=== PATIENT | male | born 1960 | race Caucasian/White ===

== ENCOUNTER 2018-01-17 08:11 | Emergency (ER) | payer OTHER ==
[~2018-01-17] VITALS: Ht 165.1 cm; Wt 68.0 kg
[~2018-01-17 08:11] MED LIST: Bactrim Ds Tab1 EACH PO; HYDR1TAB94 PO; Naprosyn500 MG PO; Silvadene20 GM TOP; Veetids 500500 MG PO
[2018-01-17] MEDS ORDERED: Bactrim Ds Tab1 EACH PO (08:34)
== END 2018-01-17 08:46 | disposition home or self-care (01) ==
LOC: ER 08:11
DX: L02.511 Cutaneous abscess of right hand (principal); L02.11 Cutaneous abscess of neck; L03.113 Cellulitis of right upper limb; L03.221 Cellulitis of neck; B95.62 Methicillin resistant Staphylococcus aureus infection as the cause of diseases classified elsewhere; F17.210 Nicotine dependence, cigarettes, uncomplicated
CPT/HCPCS: 99282

== ENCOUNTER 2018-07-29 17:20 | Emergency (ER) | payer OTHER ==
[~2018-07-29] VITALS: Ht 167.6 cm; Wt 68.0 kg
[~2018-07-29 17:20] MED LIST changes: +QUET100 PO
[2018-07-29 18:01] LABS: Source, Urine Clean Catch
[2018-07-29 18:07] LABS: Bilirubin, Urine Neg (Neg); Blood, Urine Neg (Neg); Glucose Qualitative, Urine Neg (Neg); Ketones, Urine Neg (Neg); Leukocyte Esterase, Urine Neg (Neg); Nitrite, Urine Neg (Neg); Protein, Urine Neg (Neg); Urobilinogen, Urine NORM (Normal)
[2018-07-29 18:09] LABS: BASOPHILS ABSOLUTE AUTO 0.05 K/mm3 (0.00-0.23); BASOPHILS PERCENT AUTO 0 % (0-2); EOSINOPHILS ABSOLUTE AUTO 0.04 K/mm3 (0.00-0.68); EOSINOPHILS PERCENT AUTO 0 % (0-6); Hematocrit 39.6 % (37.0-53.0); Hemoglobin 13.3 g/dL (13.5-17.5); IMMATURE GRAN ABSOLUTE AUTO 0.04 K/mm3 (0.00-0.10); IMMATURE GRAN PERCENT AUTO 0 % (0-1); LYMPHOCYTES ABSOLUTE AUTO 0.51 K/mm3 (0.84-5.20); LYMPHOCYTES PERCENT AUTO 4 % (21-46); MONOCYTES ABSOLUTE AUTO 0.67 K/mm3 (0.16-1.47); MONOCYTES PERCENT AUTO 6 % (4-13); Mean Corpuscular HGB 34.6 pg (26.0-34.0); Mean Corpuscular HGB Conc 33.6 g/dL (31.5-36.5); Mean Corpuscular Volume 103 fL (80-100); Mean Platelet Volume 9.2 fL (9.1-12.4); NEUTROPHILS ABSOLUTE AUTO 10.22 K/mm3 (1.96-9.15); NEUTROPHILS PERCENT AUTO 89 % (41-73); Platelet Count 265 K/mm3 (150-400); RDW Coefficient Variation 12.8 % (11.7-14.2); RDW Standard Deviation 48.7 fL (35.1-46.3); Red Blood Cell Count 3.84 M/mm3 (4.30-5.90); White Blood Cell Count 11.53 K/mm3 (4.00-11.30)
[2018-07-29 18:29] LABS: Alanine Aminotransfer (ALT/SGP 143 U/L (12-78); Albumin, Blood 3.6 g/dL (3.4-5.0); Albumin/Globulin Ratio 0.8 (0.8-1.8); Alk Phos 111 U/L (50-136); Anion Gap 10 mmol/L (6-16); Aspartate Aminotrans (AST/SGOT 149 U/L (12-37); Bilirubin, Total 0.5 mg/dL (0.1-1.0); Blood Urea Nitrogen 7 mg/dL (8-24); Bun/Creatinine Ratio 9.6 (12.0-20.0); CO2, Blood 25 mmol/L (21-32); Calcium, Blood 8.2 mg/dL (8.5-10.1); Chloride, Blood 98 mmol/L (98-108); Creatinine, Blood 0.73 mg/dL (0.60-1.20); Globulin, Blood 4.8 g/dL (2.2-4.0); Glomerular Filtration Rate >60 (60-); Glucose, Blood 90 mg/dL (70-99); Potassium, Blood 3.9 mmol/L (3.5-5.5); Sodium, Blood 133 mmol/L (136-145); Total Protein, Blood 8.4 g/dL (6.4-8.2)
[2018-07-29 18:40] LABS: Appearance, Urine Clear (Clear); Color, Urine Yellow (P-Yellow)
[2018-07-29 19:03] LABS: Influenza A Negative (NEGATIVE); Influenza B Negative (NEGATIVE)
[2018-07-29] MEDS ORDERED: NAPR550 PO (19:32)
== END 2018-07-29 19:55 | disposition home or self-care (01) ==
LOC: ER 17:20
PROVIDERS: Emergency Medicine
DX: S22.42XA Multiple fractures of ribs, left side, initial encounter for closed fracture (principal); R50.9 Fever, unspecified; W18.30XA Fall on same level, unspecified, initial encounter; F17.210 Nicotine dependence, cigarettes, uncomplicated; Z59.0 Homelessness
CPT/HCPCS: 36415; 71046; 80053; 81003; 83605; 85025; 87804; 99284-25; G0480

== ENCOUNTER 2018-07-30 05:36 | Inpatient (IN) | payer OTHER ==
[~2018-07-30] VITALS: Ht 165.1 cm; Wt 62.4 kg
[~2018-07-30 05:36] MED LIST changes: +NAPR550 PO
[2018-07-30 07:16] LABS: Hematocrit 38.7 % (37.0-53.0); Hemoglobin 12.6 g/dL (13.5-17.5); Mean Corpuscular HGB Conc 32.6 g/dL (31.5-36.5); Mean Corpuscular Volume 104 fL (80-100); Mean Platelet Volume 9.5 fL (9.1-12.4); Platelet Count 204 K/mm3 (150-400); RDW Standard Deviation 49.1 fL (35.1-46.3); Red Blood Cell Count 3.71 M/mm3 (4.30-5.90)
[2018-07-30 07:32] LABS: Albumin/Globulin Ratio 0.7 (0.8-1.8); Bilirubin, Total 1.1 mg/dL (0.1-1.0); Bun/Creatinine Ratio 13.6 (12.0-20.0); Calcium, Blood 8.2 mg/dL (8.5-10.1); Creatinine, Blood 1.62 mg/dL (0.60-1.20); Globulin, Blood 4.2 g/dL (2.2-4.0); Potassium, Blood 3.4 mmol/L (3.5-5.5); Total Protein, Blood 7.2 g/dL (6.4-8.2)
[2018-07-30 07:38] LABS: BAND PERCENT MAN 24 % (0-8); BASOPHILS PERCENT MAN 0 % (0-2); EOSINOPHILS PERCENT MAN 0 % (0-6); LYMPHOCYTES ABSOLUTE MAN 0.38 K/mm3 (0.84-5.20); LYMPHOCYTES PERCENT MAN 3 % (21-46); METAMYELOCYTE ABSOLUTE MAN 0.12 K/mm3 (0.00-0.00); METAMYELOCYTE PERCENT MAN 1 % (0-0); MONOCYTES ABSOLUTE MAN 0.64 K/mm3 (0.16-1.47); MONOCYTES PERCENT MAN 5 % (4-13); NEUTROPHILS ABSOLUTE MAN 11.73 K/mm3 (1.96-9.15); SEG NEUTROPHILS PERCENT MAN 67 % (41-73); TOTAL CELLS COUNTED 100
[2018-07-30 09:28] LABS: International Normalized Ratio 1.18; Prothrombin Time Results 12.3 Sec (9.7-11.5)
--- NOTE | 2018-07-30 10:57 | NUR ---
ASSUMED CARE: PT AWAKE, ALERT AND ORIENTED, FREQUENT PROUCTIVE COUGH WITH ORANGE/YELLOW SPUTUM. HYPOTENSION NOTED. DR PATE AWARE AND ORDERED AN NS BOLUS. ANTICIPATING PRESSORS, PICC RN AWARE AND PREPARINT TO INSERT LINE. O2 SAT 93% ON 4L AT THIS TIME. RESTING IN BED WATCHING TV
--- NOTE | 2018-07-30 11:44 | NUR ---
PT STATES HE HAS BIRD MITES WHEN ASKED ABOUT SCAB ON RIGHT FOREHEAD. DISCUSSED WITH HARSHA FROM INFECTION CONTROL. AWAITING CALL BACK FOR INSTRUCTIONS
--- NOTE | 2018-07-30 13:50 | NUR ---
PT GIVEN BATH AND APPLIED MEDICATION TO FULL BODY FOR BIRD MITES. ISOLATION PRECAUTIONS IN PLACE PER RECOMMENDATION OF INFECTION CONTROL.
[2018-07-30 15:27] LABS: U Amphetamine Screen Not Detected; U Barbituate Screen Not Detected; U Benzodiazapine Screen DETECTED; U Buprenorphine Screen Not Detected; U Cannabinoids Screen Not Detected; U Cocaine Screen Not Detected; U Methadone Screen Not Detected; U Methamphetamine Screen Not Detected; U Opiates Screen DETECTED; U Oxycodone Screen Not Detected; U Phencyclidine Screen Not Detected; U Propoxyphene Screen Not Detected
--- NOTE | 2018-07-30 16:00 | NUR ---
PT'S BELONGINGS SORTED AND PUT IN BLUE LINEN BAGS TO KEEP IN AIRTIGHT CONTAINER. PATIENT'S BELONGINGS WRITTEN ACROSS BAGS
--- NOTE | 2018-07-30 18:05 | NUR ---
SHIFT SUMMARY: PT MEDICATED WITH ATIVAN FOR SEVERE TREMORS AND CIWA OF 16. RESTING QUIETLY. PICC LINE PLACED, HYPOTENSIVE BUT NOT REQUIRING PRESSORS AT THIS TIME. BELONGINGS BAGGED AND ROOM IN ISOLATION DUE TO BIRD MITES. PT HAS BEEN TREATED WITH MEDICATED LOTION. NO FURTHER NEEDS OR CONCERNS AT THIS TIME.
--- NOTE | 2018-07-30 21:52 | NUR ---
ASSUMING CARE RECEIVED PT REPORT FROM ONELIA FLORES. PT IS ADMITTED DUE TO SEPSIS. PT IS ALERT AND ORIENTED AT THE TIME OF SHIFT REPORT. AT THE TIME CARE WAS ASSUMED PT IS RECEIVING NS AT 75ML/HR AND A BANANA BAG AT 75ML/HR. SHORTLY AFTER SHIFT REPORT PT BANANA BAG INFUSION COMPLETED AND WAS DISCONNECTED. PT CONTIUES TO RECEIVE NS AT 75 AT THIS TIME. PT IS TREMULOUS AT THE TIME OF SHIFT REPORT. TREMORS APPEAR TO RESPOND TO LIBRIUM AND ATIVAN. PT IS ON 3L O2 VIA NC PT SPO2 IS MAINTAINING IN THE 90'S AT THIS TIME. PT LUNGS ARE COARSE THROUGHOUT. PT IS BORDERLINE HYPOTENSIVE AT TIMES WITH A SYSTOLIC IN THE MID 80'S OBSERVED. PT MAP IS MAINTAINING IN THE 70'S. DR MACIAS PRESENT IN UNIT AND INFORMED OF PTS HYPOTENSION AND POSITIVE BLOOD CULTURES. INSTRUCTIONS RECEIVED TO CONTIUE TO MONITOR AND TO CALL IF PT MAP DECLINES. PT HAS BELONGINGS IN ROOM. BELONGINGS PLACED IN BLUE BAGS AND SEALED PER DAY SHIFT REPORT. THIS RN HAS NOT GONE THROUGH PT BELONGINGS AT THIS TIME. ASSUMING CARE OF PT AT THE TIME OF SHIFT REPORT. WILL CONTIUE TO MONITOR PT
[2018-07-31 03:58] LABS: Hematocrit 32.2 % (37.0-53.0); Hemoglobin 10.4 g/dL (13.5-17.5); Mean Corpuscular HGB 34.8 pg (26.0-34.0); Mean Corpuscular HGB Conc 32.3 g/dL (31.5-36.5); Platelet Count 159 K/mm3 (150-400); RDW Coefficient Variation 13.1 % (11.7-14.2); RDW Standard Deviation 51.9 fL (35.1-46.3); Red Blood Cell Count 2.99 M/mm3 (4.30-5.90); White Blood Cell Count 22.48 K/mm3 (4.00-11.30)
[2018-07-31 04:00] LABS: Mean Corpuscular Volume 108 fL (80-100)
[2018-07-31 04:15] LABS: Anion Gap 8 mmol/L (6-16); Blood Urea Nitrogen 17 mg/dL (8-24); Bun/Creatinine Ratio 17.5 (12.0-20.0); CO2, Blood 25 mmol/L (21-32); Calcium, Blood 7.8 mg/dL (8.5-10.1); Chloride, Blood 107 mmol/L (98-108); Creatinine, Blood 0.97 mg/dL (0.60-1.20); Glomerular Filtration Rate >60 (60-); Glucose, Blood 185 mg/dL (70-99); Potassium, Blood 3.7 mmol/L (3.5-5.5); Sodium, Blood 140 mmol/L (136-145)
[2018-07-31 04:37] LABS: BAND PERCENT MAN 38 % (0-8); BASOPHILS PERCENT MAN 0 % (0-2); EOSINOPHILS PERCENT MAN 0 % (0-6); LYMPHOCYTES ABSOLUTE MAN 0.89 K/mm3 (0.84-5.20); LYMPHOCYTES PERCENT MAN 4 % (21-46); METAMYELOCYTE ABSOLUTE MAN 1.12 K/mm3 (0.00-0.00); METAMYELOCYTE PERCENT MAN 5 % (0-0); MONOCYTES ABSOLUTE MAN 0.22 K/mm3 (0.16-1.47); MONOCYTES PERCENT MAN 1 % (4-13); MYELOCYTE ABSOLUTE MAN 0.22 K/mm3 (0.00-0.00); MYELOCYTE PERCENT MAN 1 % (0-0); SEG NEUTROPHILS PERCENT MAN 51 % (41-73); TOTAL CELLS COUNTED 100
--- NOTE | 2018-07-31 07:22 | NUR ---
SHIFT SUMMARY NOTE PT HAS SLEPT THROUGH MOST OF THE NIGHT. PT IS ABLE TO ANSWER ORIENTATION QUESTIONS APPROPRIATELY WHILE AWAKE. PT HAS REPORTED RIB PAIN THROUGHOUT THE NIGHT. PT HAS BEEN PROVIDED NORCO X2 TIMES OVERNIGHT. PT HAS BEEN TREMULOUS AND HAS REPORTED FEELINGS OF INCREASING WITHDRAWALS AT TIMES. PT REQUESTED LIBRIUM ON MULTIPLE OCCASIONS, LIBRIUM PROVIDED PER REQUEST AND EMAR. PT WAS PROVIDED 1 NORCO OR LIBRIUM AT A TIME TO PREVENT A DROPPING OF BLOOD PRESSURE. PT HAS BEEN HYPOTENSIVE AT TIMES WITH A SYSTOLIC IN THE 80'S. PT HAS MAINTAINED MAP GREATER THAN 65 THROUGHOUT THE NIGHT. PT CONTINUES TO RECEIVE NS AT 75ML/HR. PT HAS REPOSITIONED SELF IN BED AND USED THE URINAL WITHOUT ASSISTANCE. WILL REPORT OFF TO ONCOMING DAY SHIFT NURSE.
--- NOTE | 2018-07-31 07:32 | NUR ---
ASSUMED CARE: REPORT RECEIVED FROM KEITH Walker RN. ASSUMED CARE OF THIS PT AT APPROX 0700. ON ASSESSMENT, THE PT IS SITTING UP IN BED, WATCHING TV. HE IS A&O, COOPERATIVE W/ CARE. HE STS HE HAS PAIN TO HIS RIBS, WHICH STARTED "A FEW DAYS AGO" AFTER A COUGHING EPISODE. HE ALSO HAS REQUESTS FOR BEER W/ MEAL TRAYS & STS HE HAD THEM DURING HIS LAST HOSPITAL ADMISSION. WILL DISCUSS W/ PROVIDER THIS MORNING DURING ROUNDS. WILL CONTINUE TO MONITOR & UPDATE NEEDED.
--- NOTE | 2018-07-31 08:00 | NUR ---
DR. SILVA: PROVIDER IN ROOM TO SEE PT, DISCUSSED POC. CHANGES HAVE BEEN ABX REGIMEN BASED ON BLOOD CX. PT NOW OKAY TO HAVE 2 BEERS W/ EACH MEAL. ORDERS PLACED. WILL CONTINUE TO MONITOR & UPDATE NEEDED.
--- NOTE | 2018-07-31 18:49 | NUR ---
SHIFT SUMMARY: NO ACUTE CHANGES THIS SHIFT. PT REMAINS A&O TO SELF, PLACE & FOLLOWING COMMANDS. CIWA CHARTED. THE PT IS EXPERIENCING SOME VISUAL HALLUCINATIONS & ASKS "WHICH OF MY FRIENDS WAS I TALKING W/ EARLIER?" WHEN NO VISITORS HAVE BEEN IN TODAY TO SEE THE PT. LS REMAIN COARSE T/O, PT ON RA W/ O2 SATS > 92%. COUGH IS NONPRODUCTIVE. MONITOR SHOWS NSR, HR 80s. HYPOTENSION IS IMPROVING. PT HAS CONTINUED C/O HEARTBURN, MEDS PER EMAR. HE STS HE "ALWAYS" HAS HEARTBURN & TAKES ALKASELTZER NORMALLY. HE HAS A DECREASED APPETITE, IS DRINKING BEERS W/ MEAL. VOIDS W/O DIFFICULTY. WILL CONTINUE TO MONITOR & REPORT OFF TO ONCOMING RN.
--- NOTE | 2018-07-31 22:12 | NUR ---
ASSUMING CARE OF PT PT IS ALERT AND ABLE TO ANSWER ORIENTATION QUESTIONS APPROPRIATELY AT THIS ITME. PT HAS A CIWA SCORE OF APPROX 11 AT THIS TIME, PT IS CURRENTLY RECEIVING 2 BEERS PER MEAL PER DR SILVA. AT THE TIME CARE ASSUMED PT HAS 2 UNOPENED CANS OF BEER AND AN OPENED CANE THAT IS APPROXIMATELY HALF FULL. PER REPORT PT HAS HAD A POOR APPETITE THROUGHOUT THE DAY. PT IS TREMULOUS AT TIMES. PT HAS REPORTED TO BE INTERMITTENTLY SEEING HIS FRIENDS IN THE ROOM WHO ARE NOT PRESENT. PT STATES THAT HE IS AWARE THAT THEY ARE NOT PRESENT AT THIS TIME. PT SI CURRENTLY RECEIVING NS AT 75ML/HR AND A BANANA BAG AT 75ML/HR. PT IS ON ROOM AIR AT THE TIME OF SHIFT REPORT WITH SPO2 IN THE 90'S. SHORTLY AFTER SHIFT REPORT PT BEGAN TO SLEEP, WHILE ASLEEP PT BEGAN TO DESATURATE TO THE HIGH 80'S AND 2L O2 VIA NC WAS APPLIED, PT SPO2 INCREASED TO THE 90'S AFTER APPLICATION OF NC. PT LUNG SOUNDS CONTINUE TO BE COARSE THROUGHOUT. PT CONTINUES TO REPORT SEVERE RIB PAIN. PT HAS LIDOCAINE PATCH IN PLACE AND IS REQUESTING NORCO. PT PROVIDED X1 NORCO PER EMAR. PT HR IS MAINTAINING IN THE 80'S AND APPEARS TO BE STABLE AT THIS TIME. PT HYPOTENSION APPEARS TO HAVE IMPROVED AND BP IS MAINTAINING IN THE 100'S AT THIS TIME. ASSUMED CARE OF PT AT THE TIME OF SHIFT REPORT. WILL CONTINUE TO MONITOR PT.
[2018-08-01 04:09] LABS: BASOPHILS ABSOLUTE AUTO 0.07 K/mm3 (0.00-0.23); BASOPHILS PERCENT AUTO 0 % (0-2); EOSINOPHILS PERCENT AUTO 1 % (0-6); Hematocrit 32.1 % (37.0-53.0); Hemoglobin 10.2 g/dL (13.5-17.5); IMMATURE GRAN PERCENT AUTO 0 % (0-1); LYMPHOCYTES ABSOLUTE AUTO 1.53 K/mm3 (0.84-5.20); LYMPHOCYTES PERCENT AUTO 8 % (21-46); MONOCYTES ABSOLUTE AUTO 0.51 K/mm3 (0.16-1.47); MONOCYTES PERCENT AUTO 3 % (4-13); Mean Corpuscular HGB 34.7 pg (26.0-34.0); Mean Corpuscular HGB Conc 31.8 g/dL (31.5-36.5); Mean Corpuscular Volume 109 fL (80-100); NEUTROPHILS PERCENT AUTO 88 % (41-73); Platelet Count 145 K/mm3 (150-400); RDW Coefficient Variation 12.8 % (11.7-14.2); RDW Standard Deviation 51.4 fL (35.1-46.3); Red Blood Cell Count 2.94 M/mm3 (4.30-5.90); White Blood Cell Count 20.42 K/mm3 (4.00-11.30)
[2018-08-01 04:10] LABS: EOSINOPHILS ABSOLUTE AUTO 0.23 K/mm3 (0.00-0.68); IMMATURE GRAN ABSOLUTE AUTO 0.06 K/mm3 (0.00-0.10); NEUTROPHILS ABSOLUTE AUTO 18.02 K/mm3 (1.96-9.15)
[2018-08-01 04:25] LABS: Anion Gap 5 mmol/L (6-16); Blood Urea Nitrogen 14 mg/dL (8-24); Bun/Creatinine Ratio 15.5 (12.0-20.0); CO2, Blood 27 mmol/L (21-32); Chloride, Blood 108 mmol/L (98-108); Glomerular Filtration Rate >60 (60-); Glucose, Blood 80 mg/dL (70-99); Potassium, Blood 4.2 mmol/L (3.5-5.5); Sodium, Blood 140 mmol/L (136-145)
--- NOTE | 2018-08-01 06:13 | NUR ---
SHIFT SUMMARY NOTE PT HAS SLEPT THROUGH MOST OF THE NIGHT. PT CONTINUIES TO REPORT RIB PAIN. PT WAS PROVIDED X2 NORCO OVERNIGHT. PT CONTINUES TO BE SOMEWHAT TREMULOUS AT TIMES WHILE AWAKE. PT CONTINUES TO HAVE BEER AT BEDSIDE. PT HAS NOT BEEN PROVIDED LIBRIUM THROUGH THE NIGHT DUE TO CONSUMPTION OF ALCOHOL BY PT THROUGH THE NIGHT. PT VITAL SIGNS HAVE REMAINED STABLE THROUGHOUT THE NIGHT. REFER TO VITAL SIGN FLOW SHEET FOR DETAILS. PT CONTINUES ON 2L O2 VIA NC. PT IS MAINTAINING SATURATIONS AT THIS TIME IN THE MID TO HIGH 90'S. PT CONTIUES TO RECEIVE NS AT 75ML/HR. PT IS NO LONGER RECEIVING BANANA BAG AT THIS TIME. WILL REPORT OFF TO ONCOMING DAY SHIFT NURSE.
--- NOTE | 2018-08-01 07:23 | NUR ---
Received report from Abbe ROUSSEAU. Patient awake and is able to communicate his needs. He is lying in bed supine and HOB at 20 degrees and is flipping through the channels to find something good to watch. He is on 2L O2 humidified O2 via NC and sast mid 90%'s. He has PICC line to MAYA and all lines have been flushed and recapped. He has NS at 75ml/hr infuinsg. He is moderatly tremulous and has Beer at bedside from previous meals he is slowly drinking. I just assisted him up to bedside cammode and he was able to transfer self over. He states 9/10 pain from ribs and also states he has a hard time breathing although sats are 96%. I will medicate with [place] per MAR. He denies any other system problems.
--- NOTE | 2018-08-01 09:31 | NUR ---
Patient has been up several times to bedside cammode and is SBA. He took am meds with beer at bedside. Dr Grey has been in room and is transferring him to medical and his CIWA has been 6-8. He will get up to shower prior to transferring to medical. VSS. He has been calm and cooperative
--- NOTE | 2018-08-01 10:36 | NUR ---
Gave report to room 313 RN. Patient was in shower and when done he applied creame that we used for his stated Bird Mites. Bannana Bag infusing and can be dc'd when done. Placed Lidocaine patch on right rib area and gave rest of am meds per AUG. He was transferred with his beer and O2 lines for sleeping and cell phone and ear buds.. I will bring his two other bags later. He was transferred via wheelchair.
--- NOTE | 2018-08-01 17:20 | NUR ---
PT IS AO AND COOPERATIVE OF CARE. PT RESTING IN BED AT THIS TIME. PT WILL GET UP WITHOUT ASKING TO USE RESTROOM. PT WATCHING TV AT THIS TIME. 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 ICU WAS CALLED AND HOUSE CLEANING, BUT HAS NOT BEEN LOCATED.WILL CONTINUE TO MONITOR.
[2018-08-02 05:33] LABS: BASOPHILS ABSOLUTE AUTO 0.05 K/mm3 (0.00-0.23); BASOPHILS PERCENT AUTO 0 % (0-2); EOSINOPHILS ABSOLUTE AUTO 0.01 K/mm3 (0.00-0.68); EOSINOPHILS PERCENT AUTO 0 % (0-6); Hematocrit 33.3 % (37.0-53.0); Hemoglobin 10.8 g/dL (13.5-17.5); IMMATURE GRAN ABSOLUTE AUTO 0.07 K/mm3 (0.00-0.10); IMMATURE GRAN PERCENT AUTO 1 % (0-1); LYMPHOCYTES ABSOLUTE AUTO 1.23 K/mm3 (0.84-5.20); LYMPHOCYTES PERCENT AUTO 8 % (21-46); MONOCYTES ABSOLUTE AUTO 0.63 K/mm3 (0.16-1.47); MONOCYTES PERCENT AUTO 4 % (4-13); Mean Corpuscular HGB 33.9 pg (26.0-34.0); Mean Corpuscular HGB Conc 32.4 g/dL (31.5-36.5); Mean Platelet Volume 10.5 fL (9.1-12.4); NEUTROPHILS ABSOLUTE AUTO 12.65 K/mm3 (1.96-9.15); NEUTROPHILS PERCENT AUTO 86 % (41-73); Platelet Count 171 K/mm3 (150-400); RDW Coefficient Variation 12.4 % (11.7-14.2); RDW Standard Deviation 47.7 fL (35.1-46.3); Red Blood Cell Count 3.19 M/mm3 (4.30-5.90); White Blood Cell Count 14.64 K/mm3 (4.00-11.30)
[2018-08-02 05:35] LABS: Mean Corpuscular Volume 104 fL (80-100)
--- NOTE | 2018-08-02 05:53 | NUR ---
SHIFT SUMMARY A/O, ABLE TO MAKE NEEDS KNOWN. COOPERATIVE WITH CARE. ANSWERS QUESTIONS APPRORIATELY. NO C/O PAIN/DISCOMFORT. CIWA SCORE @ 8 MEDICATED PER EMAR X1. WILL REPEAT SOON. UP INDEPENDENTLY IN ROOM. PULLED OUT PICC LINE AROUND 0000. BED IN LOWEST POSITION. CALL LIGHT AND BELONGINGS WITHIN REACH. WCTM. REPORT TO ONCOMING RN.
[2018-08-02 06:33] LABS: Anion Gap 7 mmol/L (6-16); Blood Urea Nitrogen 12 mg/dL (8-24); CO2, Blood 25 mmol/L (21-32); Chloride, Blood 108 mmol/L (98-108); Glucose, Blood 88 mg/dL (70-99); Potassium, Blood 3.9 mmol/L (3.5-5.5); Sodium, Blood 140 mmol/L (136-145)
[2018-08-02 06:34] LABS: Bun/Creatinine Ratio 13.3 (12.0-20.0); Calcium, Blood 8.4 mg/dL (8.5-10.1); Glomerular Filtration Rate >60 (60-); Magnesium, Blood 1.9 mg/dL (1.6-2.4)
--- NOTE | 2018-08-02 18:39 | NUR ---
PT AOX4 AND COOPERATIVE OF CARE. INDEPENDENT IN [place]. TREATED FOR PAIN PER EMAR. DOESN'T USE CALL LIGHT WALKS OUT TO REQUEST ASSISTANCE. WILL CONTINUE TO MONITOR.
--- NOTE | 2018-08-03 06:54 | NUR ---
Rn summary: Patient is alert and oriented. Pt states he is having hallucinations of people who are not there. He states they are people he knows, he is not frieghtened. Pt CIWA was 12 then 10. Pt did receive librium 50mg x2 with good results. Pt has rib pain from coughing and he did receive 1 norco with good relief and did sleep well 2nd half of shift. Patient did walk out to smoke x1 last evening. Pt does have course exp wheezes lopez lungs. Pt is on PO levaquin and states possible DC today. Pt is homeless. Call light in reach.
[2018-08-03] MEDS ORDERED: LEVO750 PO (10:00)
--- NOTE | 2018-08-03 10:52 | NUR ---
SHIFT SUMMARY/DC PT HAS HAD NO ACUTE CHANGES THIS SHIFT, NO COMPLAINTS OF ANY KIND. PT DRESSED AND LEAVING FOR DC W/O WAITING FOR DC INSTRUCTIONS. REVIEWED THEM W/PT AT IRU DESK, EXPLAINED TO RX VOUCHER TO PT AND WAS DC'ING IN TAXI TO [facility] TO [employer]. PT WALKED OUT BY [facility] (PT ADVOCATE FILL IN) TO DC IN TAXI @ 1050.
== END 2018-08-03 10:49 | disposition home or self-care (01) | DRG 871 ==
LOC: ER 05:36 → ICUE 08:39 → ERHOLD 08:39 → ICUE 10:14 → MEDS 08-01 10:35 → ENPENDDIS 08-03 09:49 → MEDS 08-03 10:49
PROVIDERS: Emergency Medicine; Hospitalist; Internal Medicine Pulmonary Disease; ADMIT Internal Medicine
DX: A40.3 Sepsis due to Streptococcus pneumoniae (principal); J13 Pneumonia due to Streptococcus pneumoniae; R65.21 Severe sepsis with septic shock; N17.9 Acute kidney failure, unspecified; S22.49XA Multiple fractures of ribs, unspecified side, initial encounter for closed fracture; E87.2 Acidosis; F10.20 Alcohol dependence, uncomplicated; R94.5 Abnormal results of liver function studies; E87.6 Hypokalemia; K74.60 Unspecified cirrhosis of liver; B19.20 Unspecified viral hepatitis C without hepatic coma; Z87.891 Personal history of nicotine dependence; Z59.0 Homelessness
CPT/HCPCS: 36415; 36569; 71045; 71046; 80048; 80053; 83605; 83735; 83880; 85025; 85610; 87040; 87070; 87186; 87205; 94640; 96361; 96365; 96375; 99285-25; J0456; J0696; J1170; J1650; J2060; J2405; J2543; J3370; J3475; J7030; J7042; J7050; J7120